=== PATIENT | female | born 1965 | race Caucasian/White ===

== ENCOUNTER 2017-01-01 16:37 | Emergency (ER) | payer MEDICAID | END 2017-01-01 18:45 | disposition home or self-care (01) | LOC: D.ER 16:37 | DX: M54.5 Low back pain (principal); M54.30 Sciatica, unspecified side; F17.200 Nicotine dependence, unspecified, uncomplicated ==

== ENCOUNTER 2017-01-30 16:05 | Emergency (ER) | payer MEDICAID | END 2017-01-30 17:39 | disposition home or self-care (01) | LOC: D.ER 16:05 | DX: M54.9 Dorsalgia, unspecified (principal) ==

== ENCOUNTER 2017-06-19 12:12 | Emergency (ER) | payer MEDICAID | END 2017-06-19 13:30 | disposition home or self-care (01) | LOC: D.ER 12:12 | DX: M54.5 Low back pain (principal); M62.838 Other muscle spasm; W00.0XXA Fall on same level due to ice and snow, initial encounter; Y93.89 Activity, other specified; Y92.019 Unspecified place in single-family (private) house as the place of occurrence of the external cause; F17.200 Nicotine dependence, unspecified, uncomplicated ==